=== PATIENT | female | born 1985 | race Caucasian/White ===

== ENCOUNTER 2017-06-16 14:46 | Emergency (ER) | payer BC ==
[~2017-06-16] VITALS: Ht 154.9 cm; Wt 104.3 kg
[~2017-06-16 14:46] MED LIST: ACEASPCAF PO; ACYC800 PO; ALBU90OI INH; ANTOXYBENA OT; ASCO500 PO; AZIT250 PO; BCPs; Bactrim Ds Tab1 EACH PO; CALCAVITDA; CEPH500 PO; CHOL10002 PO; CLIN150 PO; CYCL10 PO; Cephalexin250 MG/5 M PO; Cyclobenzaprine5 MG PO; DESENEX TP; DIAZ10 PO; DOCU100 PO; DOXY100 PO; ERGO400 PO; ERYT.5TO OS; ERYT1OIN BOTHEYES; ERYT500 PO; ESCI10 PO; FAMO20 PO; FISH1000 PO; GARCINIA CAMBO1 EACH PO; HYDACE10B PO; HYDACE5; HYDACE5 PO; HYDHCL25 PO; IBUP600 PO; IBUP800 PO; Keflex500 MG PO; LORA1 PO; META800 PO; METF500; METPRE4DP PO; METR500; NAPR220; NAPR500 PO; NAPR550 PO; NITR100 PO; NITR100CA PO; Naprosyn375 MG PO; OMEG1CAP30; ONDA4 PO; ONDA4ODT MM; ONDA8ODT MM; OXYACE5T; OXYACE5T PO; PARO10 PO; PARO20 PO; POLY17UD PO; PREN-16 PO; PROACE100 PO; PROBIOTIC & AC1 EACH PO; PROCODE120 PO; PROM25 PO; PROM25S PR; RANI150 PO; RXCLIN PO; RXHYDACE PO; RXLORA1 PO; RXNAPNA550 PO; RXNEOPOLHC AD; RXOXYACE PO; RXPROACE PO; RXPROM25 PO; RXTRAM50 PO; SULF10OPO OP; SULTRIDS PO; SULTRISS; Super Calcium600 MG PO; TOBR.3OPSO OP; TRAM50 PO; Verotin-Gr Cap1 EACH PO; Vibramycin100 MG PO; Zantac150 MG PO; [UNRECOGNIZED DRUG - OTHER]
[2017-06-16] MEDS ORDERED: Hair, Skin & N1 EACH PO (15:01)
[2017-06-16] MEDS ORDERED: Cheratussin AC118 ML PO (15:46)
[2017-06-16] MEDS ORDERED: Sudogest30 MG PO (15:46)
[2017-06-16] MEDS ORDERED: SPACE CHAMBER1 EACH INH (15:46)
[2017-06-16] MEDS ORDERED: Flonase 0.05% N16 GM (15:46)
[2017-06-16] MEDS ORDERED: ALBU90OI INH (15:46)
== END 2017-06-16 15:50 | disposition home or self-care (01) ==
LOC: ER 14:46
DX: J32.9 Chronic sinusitis, unspecified (principal); Z88.5 Allergy status to narcotic agent; Z88.0 Allergy status to penicillin; Z88.8 Allergy status to other drugs, medicaments and biological substances; Z79.899 Other long term (current) drug therapy; Z79.2 Long term (current) use of antibiotics; F41.9 Anxiety disorder, unspecified; Z90.49 Acquired absence of other specified parts of digestive tract
CPT/HCPCS: 71046; 94640; 99283

== ENCOUNTER → 2020-03-24 | Outpatient (CLI) | payer OTHER ==
[~2020-03-24] MED LIST changes: +Cheratussin AC118 ML PO; +Flonase 0.05% N16 GM; +Hair, Skin & N1 EACH PO; +SPACE CHAMBER1 EACH INH; +Sudogest30 MG PO
[2020-03-26 12:08] LABS: CHLAMYDIA TRACHOMATIS, NAA Negative (Negative)
[2020-03-28 15:11] LABS: HPV 16 Negative (Negative); HPV 18 Negative (Negative); HPV OTHER HR TYPES Negative (Negative)
== END ==
LOC: LAB SHORT 13:09 → LAB 13:09
PROVIDERS: Family Medicine
DX: Z12.4 Encounter for screening for malignant neoplasm of cervix (principal)
CPT/HCPCS: 87491; 87591; 87624; G0123

== ENCOUNTER 2020-09-28 15:14 | Emergency (ER) | payer OTHER ==
[~2020-09-28] VITALS: Ht 157.5 cm; Wt 88.5 kg
== END 2020-09-28 15:55 | disposition home or self-care (01) ==
LOC: ER 15:14
DX: R07.89 Other chest pain (principal); Z88.5 Allergy status to narcotic agent; Z88.0 Allergy status to penicillin; Z88.8 Allergy status to other drugs, medicaments and biological substances; Z79.899 Other long term (current) drug therapy
CPT/HCPCS: 99282

== ENCOUNTER → 2021-05-04 | Outpatient (CLI) | payer OTHER | END | disposition home or self-care (01) | LOC: LAB SHORT 13:05 → PLD 13:05 | DX: N92.0 Excessive and frequent menstruation with regular cycle (principal) | CPT/HCPCS: 88305 ==

== ENCOUNTER 2021-06-04 08:35 | Day surgery (SDC) | payer OTHER ==
[~2021-06-04] VITALS: Ht 157.5 cm; Wt 82.4 kg
[2021-06-04] MEDS ORDERED: METF500C PO (10:21)
[2021-06-04] MEDS ORDERED: OMEP20ER PO (10:21)
[2021-06-04] MEDS ORDERED: PROG100 (10:24)
--- NOTE | 2021-06-04 10:39 | NUR ---
ADMITTED TO DAY SURGERY CONFIRMED SURGERY AND NPO STATUS. PT QUITE ANXIOUS ABOUT SURGERY AND ANESTHESIA "NOT WAKING UP" REASSURED PATIENT AND INFORMED ANESTHESIA DR VIERA PATIENTS SPECIFIC GRAVITY FOR URINE HCG WAS 1.005 LAB DRAW SENT FOR SERUM HCG. DR SAPP INFORMED AND SHE REQUESTED TO HAVE PATIENT URINATE AGAIN. APPROX 15 MIN LATER PATIENT GAVE 2ND URINE SAMPLE. SG THEN 1.[address] RESULTS. [address] SAPP INFORMED 1040 AWAITING THE OR REDINESS TO BRING PATIENT BACK TO OR
--- NOTE | 2021-06-04 11:28 | NUR ---
06/04/21 Arlene Camilo PRIOR TO SURGERY START, WILHELM TABLE IN PLACE & SECURED TO PROTECT PATIENT'S FACE,HEAD, AND INTUBATION TUBE.
[2021-06-04] MEDS ORDERED: DOCU100 PO (14:18)
[2021-06-04] MEDS ORDERED: ACET500 PO (14:18)
[2021-06-04] MEDS ORDERED: IBUP800 PO (14:19)
[2021-06-04] MEDS ORDERED: OXAYDO5 M1 PO (14:20)
--- NOTE | 2021-06-04 18:30 | NUR ---
DISCHARGE SUMMARY PT A&OX4, VSS/RA, SUDARSHAN PO, VOIDING, UP IN ROOM/UP TO CHAIR, PAIN MANAGED. LEFT FLOOR TO GO HOME WITH FRIENDS, WITH ALL PERSONAL POSSESSIONS INCLUDING DC PACKET WITH 2 SCRIPTS. DC INSTRUCTIONS PROVIDED; PT REP UNDERSTANDING THOSE INSTRUCTIONS. IV DC'D.
== END 2021-06-04 18:05 | disposition home or self-care (01) ==
LOC: ORSCMMR 08:35 → ORD 10:30 → ORSCMMR 10:30 → SURS 13:38 → ORSCMMR 18:05
PROVIDERS: Obstetrics & Gynecology
PROC: 0UT74ZZ Resection of Bilateral Fallopian Tubes, Percutaneous Endoscopic Approach (ICD-10-PCS; principal; 2021-06-04 10:30)
PROC: 0UT94ZZ Resection of Uterus, Percutaneous Endoscopic Approach (ICD-10-PCS; principal; 2021-06-04 10:30)
PROC: 8E0W4CZ Robotic Assisted Procedure of Trunk Region, Percutaneous Endoscopic Approach (ICD-10-PCS; principal; 2021-06-04 10:30)
DX: N94.6 Dysmenorrhea, unspecified (principal); N92.0 Excessive and frequent menstruation with regular cycle; N83.202 Unspecified ovarian cyst, left side; Q50.5 Embryonic cyst of broad ligament; N83.8 Other noninflammatory disorders of ovary, fallopian tube and broad ligament; D25.9 Leiomyoma of uterus, unspecified; R73.03 Prediabetes; K21.9 Gastro-esophageal reflux disease without esophagitis; Z79.84 Long term (current) use of oral hypoglycemic drugs; Z79.899 Other long term (current) drug therapy; E66.9 Obesity, unspecified; Z68.34 Body mass index [BMI] 34.0-34.9, adult
CPT/HCPCS: 58571; S2900; 82947; 84703; 88307; A9270; J0690; J1100; J1885; J2250; J2405; J2704; J3010; J7120

== ENCOUNTER → 2021-09-28 | Outpatient (CLI) | payer OTHER ==
[~2021-09-28] MED LIST changes: +ACET500 PO; +METF500C PO; +OMEP20ER PO; +OXAYDO5 M1 PO; +PROG100
[2021-09-29 15:35] LABS: Candida species (DNA Probe) Positive (NEGATIVE); G. vaginalis (DNA Probe) Negative (NEGATIVE); T. vaginalis (DNA Probe) Negative (NEGATIVE)
[2021-09-30 18:07] LABS: CHLAMYDIA TRACHOMATIS, NAA Negative (Negative)
== END | disposition home or self-care (01) ==
LOC: LAB SHORT 13:49
PROVIDERS: Advanced Practice Midwife
DX: Z11.3 Encounter for screening for infections with a predominantly sexual mode of transmission (principal); N76.0 Acute vaginitis
CPT/HCPCS: 87480; 87491; 87510; 87591; 87660

== ENCOUNTER 2022-11-25 17:13 | Emergency (ER) | payer BC, OTHER ==
[~2022-11-25] VITALS: Ht 157.5 cm; Wt 88.5 kg
[2022-11-25 17:17] VITALS: BP 147/100
[2022-11-25 17:44] LABS: BASOPHILS ABSOLUTE AUTO 0.09 K/mm3 (0.00-0.23); BASOPHILS PERCENT AUTO 1 % (0-2); EOSINOPHILS ABSOLUTE AUTO 0.12 K/mm3 (0.00-0.68); EOSINOPHILS PERCENT AUTO 1 % (0-6); Hematocrit 39.3 % (33.0-51.0); Hemoglobin 13.8 g/dL (11.5-16.0); IMMATURE GRAN ABSOLUTE AUTO 0.04 K/mm3 (0.00-0.10); IMMATURE GRAN PERCENT AUTO 0 % (0-1); LYMPHOCYTES ABSOLUTE AUTO 4.33 K/mm3 (0.84-5.20); LYMPHOCYTES PERCENT AUTO 40 % (21-46); MONOCYTES ABSOLUTE AUTO 0.59 K/mm3 (0.16-1.47); MONOCYTES PERCENT AUTO 6 % (4-13); Mean Corpuscular HGB 30.8 pg (26.0-34.0); Mean Corpuscular HGB Conc 35.1 g/dL (31.5-36.5); Mean Corpuscular Volume 88 fL (80-100); Mean Platelet Volume 9.2 fL (9.1-12.4); NEUTROPHILS ABSOLUTE AUTO 5.56 K/mm3 (1.96-9.15); NEUTROPHILS PERCENT AUTO 52 % (41-73); Platelet Count 363 K/mm3 (150-400); RDW Standard Deviation 38.4 fL (35.1-46.3); Red Blood Cell Count 4.48 M/mm3 (3.80-5.20); White Blood Cell Count 10.73 K/mm3 (4.00-11.30)
[2022-11-25 17:57] LABS: Albumin, Blood 4.1 g/dL (3.4-5.0); Albumin/Globulin Ratio 1.1 (0.8-1.8); Bilirubin, Total 0.2 mg/dL (0.1-1.0); Bun/Creatinine Ratio 10.3 (12.0-20.0); Calcium, Blood 9.4 mg/dL (8.5-10.1); Creatinine, Blood 0.97 mg/dL (0.40-1.00); Globulin, Blood 3.6 g/dL (2.2-4.0); Potassium, Blood 3.4 mmol/L (3.5-5.5); Total Protein, Blood 7.7 g/dL (6.4-8.2)
[2022-11-25 19:33] LABS: Source, Urine Clean Catch
[2022-11-25 19:37] LABS: Appearance, Urine Clear (Clear); Bilirubin, Urine Neg (Neg); Blood, Urine Neg (Neg); Color, Urine Yellow (P-Yellow); Glucose Qualitative, Urine Neg (Neg); Ketones, Urine Neg (Neg); Leukocyte Esterase, Urine Neg (Neg); Nitrite, Urine Neg (Neg); Protein, Urine Neg (Neg); Urobilinogen, Urine NORM (Normal); pH, Urine 6.5 (5.0-8.0)
== END 2022-11-25 20:29 | disposition home or self-care (01) ==
LOC: ER 17:13
PROVIDERS: Physician Assistant
DX: R10.2 Pelvic and perineal pain (principal); N20.0 Calculus of kidney; Z90.710 Acquired absence of both cervix and uterus; Z79.899 Other long term (current) drug therapy; Z79.84 Long term (current) use of oral hypoglycemic drugs
CPT/HCPCS: 74177; 80053; 81003; 85025; 99283-25; Q9967

== ENCOUNTER → 2022-11-28 | Outpatient (CLI) | payer BC, OTHER | END | disposition home or self-care (01) | LOC: LAB 14:01 → LAB SHORT 14:01 | DX: J02.0 Streptococcal pharyngitis (principal) | CPT/HCPCS: 87081 ==

== ENCOUNTER 2024-03-02 20:53 | Emergency (ER) | payer OTHER ==
[~2024-03-02] VITALS: Ht 157.5 cm; Wt 85.7 kg
[2024-03-02 21:03] VITALS: BP 146/94
[2024-03-02] MEDS ORDERED: Ketorolac Tromethamine 15mg Vial IM ONE (23:10)
== END 2024-03-02 23:18 | disposition home or self-care (01) ==
LOC: ER 20:53
DX: M79.621 Pain in right upper arm (principal); X58.XXXA Exposure to other specified factors, initial encounter; Y93.72 Activity, wrestling; Z88.5 Allergy status to narcotic agent; Z88.0 Allergy status to penicillin; Z88.8 Allergy status to other drugs, medicaments and biological substances; Z79.84 Long term (current) use of oral hypoglycemic drugs; Z79.899 Other long term (current) drug therapy
CPT/HCPCS: 96372; 99283-25; J1885